=== PATIENT | male | born 1995 | race African-American/Black ===

== ENCOUNTER 2017-08-08 19:39 | Emergency (ER) | payer OTHER ==
[~2017-08-08] VITALS: Ht 185.4 cm; Wt 88.0 kg
[2017-08-08 19:46] VITALS: BP 141/86
[2017-08-08] MEDS ORDERED: DIPH,PERTUSS(ACELL),TET VAC/PF 0.5 ML IM-VACC ONE ×2 (20:30→20:32)
[2017-08-08] MEDS ORDERED: LIDOCAINE 1%, 20ML SQ ONE (20:30)
[2017-08-08] MEDS ORDERED: LIDOCAINE 1%, 20ML ONE (20:32)
[2017-08-08] MEDS ORDERED: BACITRACIN ZINC OINT 500U/GM, 0.9 GM ONE (22:12)
== END 2017-08-08 22:34 | disposition home or self-care (01) ==
LOC: ED 22:20
DX: S61.210A Laceration without foreign body of right index finger without damage to nail, initial encounter (principal); W26.0XXA Contact with knife, initial encounter; Y93.89 Activity, other specified; Y99.8 Other external cause status; Y92.89 Other specified places as the place of occurrence of the external cause
CPT/HCPCS: 12001; 90471; 90715; 99283; J3490